=== PATIENT | female | born 1955 | race Caucasian/White ===

== ENCOUNTER 2018-11-25 14:08 | Inpatient (IN) | payer BC ==
[~2018-11-25] VITALS: Ht 147.3 cm; Wt 43.5 kg
--- NOTE | ~2018-11-25 | HC ---
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 She had a standing level fall off the front steps, had increased pain and inability to ambulate. She was evaluated and has been diagnosed with a left sacral fracture and left superior and inferior pubic rami fracture. She is allowed weightbearing as tolerated. She does have a left upper lobe nodule, new finding. Right lower lobe possible pneumonia. She is a current smoker, one-half pack per day and has a history of COPD. Neurology has seen her and noted some left-sided weakness with left homonymous hemianopsia uncertain what is old versus what is new. MRI of the brain was undertaken. She had a chronic 1.5 cm lacunar infarct right basal ganglia, cycle of a prior hemorrhagic transformation of the previous infarct, no acute intracranial infarct was noted. We are seeing the patient in rehabilitation medicine consultation. PAST MEDICAL HISTORY: Includes a right hemorrhagic CVA last year with the left-sided weakness as noted above. She also has left-sided numbness. Apparently, this was due to untreated hypertension. She did have significant recovery. She has had a prior right hip fracture with repair, history of chronic obstructive pulmonary disease, history of untreated hyperlipidemia, depression, or insomnia. She has had carpal tunnel surgery. MEDICATIONS: Please see the full medication listing. SOCIAL HISTORY: Lives with her and son, house, one step. works and son is supportive and involved. There is a sister that lives close by and is involved. Sister apparently helped with sit, pivot, tub transfers premorbidly. The patient did utilize a walker premorbidly. REVIEW OF SYSTEMS: Lower extremity pain is starting to improve. She did have a prior history of chronic back problems and has followed with Dr. Beavers in pain management. No current chest pain, shortness of breath, or abdominal discomfort. She has the chronic tobacco abuse history. No swallowing issues, bowel or bladder changes, no visual changes; although, she has some left-sided visual problems from the stroke. No new facial changes. She does have the decreased sensation, left side, which is from the prior stroke. PHYSICAL EXAMINATION: [facility] [address] [place] [address] CONSULTATION Name: MIKKI LAKHANI Room #: 431-P [facility] IN M.R.#: [id number] Admission: 11/25/18 ������������������ Attend Phys: Angel Alvarez MD Discharge: ������������������ Date of : 55 Report #: [id number] GENERAL: A 63-year-old white female, slender build, no obvious distress. VITAL SIGNS: Temperature 97.6, pulse 58, respirations 18, blood pressure 106/65. She is alert. HEENT: Appeared to be benign. NEUROLOGIC: Cranial nerves are grossly intact. She does have some decreased sensation, left visual field to confrontation, although it is a relatively mild. She does have a resting tremor of that right upper extremity, some mild left-sided weakness, left upper extremity, probably a grade 4-/5. She has some decreased coordination as noted. Lower extremities, some discomfort with attempted testing of volitional strength. She is probably at least grade 4-/5. DTRs are trace to 1. She does have decreased sensation to simultaneous stimulation, left upper and left lower extremity. Functionally, she is mod assist with sit to stand, took 5-6 steps. Lower extremity dressing is min assist. ASSESSMENT: A 63-year-old white female with the following problem list: 1. Left sacral fracture with left superior and inferior pubic rami fracture, allowed weightbearing as tolerated. 2. Left hemiparesis with left hemisensory deficit. 3. Prior hemorrhagic right brain cerebrovascular accident. 4. Question of right lower lobe pneumonia. 5. Question of left upper lobe tumor. 6. Prior right hip fracture with intramedullary nailing. 7. Some evidence of left homonymous hemianopsia. 8. Tobacco abuse. 9. History of chronic obstructive pulmonary disease. PLAN: The patient is a candidate for an acute in-hospital inpatient rehabilitation stay. She is very motivated to further improve her overall functional independence and I definitely feel that she has the tolerance for an acute in-hospital inpatient rehabilitation stay. She does have support at home and has definite goals of getting back into the home setting. We would recommend a short acute in-hospital inpatient rehabilitation stay. Insurance issues to be checked on. ��������������������������������������������� ���������������������������������������� By: ��������������������������������������������� 1100 0052 Poli Stanley MD /nt
--- NOTE | ~2018-11-25 | HC ---
[facility] [place] [address] CONSULTATION Name: MIKKI LAKHANI Room #: 431-P ADM IN ..#: [id number] Admission: 11/25/18 ������������������ Attend Phys: Angel Alvarez MD Discharge: ������������������ Date of : 55 Report #: [id number] THIS REPORT FOR: //name// CC: Angel Alvarez DATE OF SERVICE: 11/26/2018 HISTORY OF PRESENT ILLNESS: This is a 63-year-old female patient who was admitted after a fall and with some hip pain about 9 days ago, that appeared to be a mechanical fall without any loss of consciousness. She has pain there. She has weakness on the left side. She has been taking tramadol for the pain. She indicates that her weakness on the left side is worse than her baseline. REVIEW OF SYSTEMS: Pretty extensive and somewhat not clear. She indicated that she had a hemorrhage on the right side of the brain causing her the left side weakness. She went to [facility] and saw a neurosurgeon there. I have no record of that with me. She said she saw neurosurgeon multiple times. I asked her why she had a hemorrhage, she indicated that it happened because her blood pressure spiked. One of the records has mentioned cardiac disease and atrial fibrillation, but I do not know whether this patient was on anticoagulation at that time. She is on Keppra. She is supposed to be on 500 b.i.d. of Keppra, but she has not been taking that for a long time and in fact is taking Keppra only once a day. She has been to multiple physicians. She indicated that she went to a pain management doctor in [place] and some EMG was done. Now, she follows up with Dr. Beavers for the pain management. In between, she saw Dr. Yee, a neurosurgeon because of C-spine problems, but he did not think any surgery can be done because she says "because the problem is too severe." REVIEW OF SYSTEMS: A 14-point review of system was carried out and this was a relevant 14-point review of system. So far, no etiology for the patient has been found. PAST MEDICAL HISTORY: Positive for hemorrhagic stroke. I do not know the circumstances for which it occurred. It is clear that she did not have a seizure and Keppra was started as a prophylaxis for seizure. FAMILY HISTORY: Unremarkable. SOCIAL HISTORY: She drinks alcohol occasionally. PHYSICAL EXAMINATION: She is alert and responsive. She can follow simple commands. Cranial nerve examinations indicate what appeared to be pretty significant left hemianopsia. She does have slight facial weakness. She appeared to be weak in both lower extremities, I do not know how much is old and how much is new. She said the sensation is altered in both lower extremities [facility] [address] [facility] [place] [address] CONSULTATION Name: MIKKI LAKHANI Heidi Room #: 431-P [facility] IN M.R.#: [id number] Admission: 11/25/18 ������������������ Attend Phys: Angel Alvarez MD Discharge: ������������������ Date of : 55 Report #: [id number] since the stroke. Cardiac examination appears unremarkable. Blood pressure is 111/76, respirations 16, pulse is 84, temperature is 98.1. LABORATORY DATA: White count is 6.2. No respiratory difficulty was noticed. Sodium is 139, it was 133. IMPRESSION: Pretty complicated history in this patient and multiple things need to be addressed. 1. I need the record from [facility] to see why she has any intracerebral bleed and if she was on any anticoagulation at that time. If it was a hypertensive bleed, then I do not believe we need further workup, but otherwise, workup need to be considered. 2. She never had a seizure. She was put on anticonvulsant. The use of anticonvulsant is controversial in a patient who had a bleed, but never had a clinical seizure. Even the physician who put this patient on anti-seizure medication typically take them off after 6 months to 1 year if they do not have any seizure. I discussed that aspect with the patient. I discussed with her that there is no guarantee that she will not have a seizure after the Keppra is tapered off. She needs to decide. We will get an EEG done and we will see how much Keppra level is there. If it is subtherapeutic, for which there is a good possibility, then we may make a stronger case to taper off anticonvulsant. 3. She should avoid any epileptiform medication and she should not take tramadol. 4. She needs a workup for her lung mass. If it is a tumor, then she will need extensive workup including perineoplastic workup. 5. She had trouble with spine in the past. I discussed that aspect with her. I recommended that she has an MRI of the C-spine at the same time she has an MRI of the brain. She said she does not handle MRIs well. She would like to have an MRI of brain only for the time being and if she tolerates that, then we might do the MRI of the spine later on. Thank you very much for this referral and if you have any questions, please feel free to contact me. ��������������������������������������������� ���������������������������������������� By: ��������������������������������������������� 0949 0252 Alec Chan MD /nt
--- NOTE | ~2018-11-25 | H ---
[facility] [place] [address] HISTORY AND PHYSICAL Name: MIKKI LAKHANI Room #: 431-P ADM IN M.R.#: [id number] Admission: 11/25/18 ������������������ Attend Phys: Angel Alvarez MD Discharge: ������������������ Date of : 55 Report #: [id number] THIS REPORT FOR: //name// CC: Angel Alvarez CHIEF COMPLAINT: Progressive left leg weakness and a persistent severe right hip pain after a fall. HISTORY OF PRESENT ILLNESS: Approximately days 9 ago, the patient was standing at her front steps and lost her balance and fell landing on her right hip. She was able to get up and walk back inside to her couch with assistance of family members. She also injured her left side, primarily the left knee during the fall. She did not hit her head. As the day progressed, she developed severe pain in her right hip, and has been unable to walk on it. As time has progressed since her fall, she has had progressively more pain in her right hip, not been able to walk, and also had more weakness and pain in her left knee and her left leg and her left hand. For these reasons, being unable to walk, she was brought by the ambulance to the hospital for further evaluation. Initial evaluation of her right hip showed normal x-rays of her prosthesis. Her sodium is mildly low at 133. Her urinalysis was abnormal, suggesting a urinary tract infection. A CT of the chest showed possible right lower lobe pneumonia and left upper lobe mass with suspicious features for lung cancer, and a significant left subclavian artery plaque. No suggestion as to the cause of her severe right hip pain, or progressive left arm and left leg weakness (other than these abnormalities) that was found. She requires admission for evaluation of these other features. PAST MEDICAL HISTORY: Significant for hemorrhagic right hemisphere stroke last year that left her with left leg weakness, left leg numbness and some pain and numbness in the left arm as well. She has recovered a significant amount of function since that time. She reports that since her fall last week, her left side has become weaker progressively. Stroke due to untreated HTN. No seizure after the stroke, immediately started on prophylactic Keppra. She has had right hip repair of a previous right hip fracture, and films from 03/19/2014 are available and no acute abnormality has occurred. On the same films, moderate myositis ossificans appears on the left hip muscles above the lesser trochanter. She has hypertension, untreated hyperlipidemia, COPD, not requiring treatment, she continues to smoke a half a pack a day. Depression, insomnia. She reports carpal tunnel surgery. SOCIAL HISTORY: She lives at home with her . She gets a significant amount of support from her sister who stops by almost daily . She does not [address] [address] HISTORY AND PHYSICAL Name: MIKKI LAKHANI Heidi Room #: 431-P [facility] IN ..#: [id number] Admission: 11/25/18 ������������������ Attend Phys: Angel Alvarez MD Discharge: ������������������ Date of : 55 Report #: [id number] drink significant alcohol. She insists she only smokes a half a pack of cigarettes a day. Prior to her fall, she was able to get around independently at home with a walker. She retired last year, and then in doing so, lost her health insurance. Her hypertension was untreated at the time she had a hemorrhagic stroke. Since that time, she qualified for insurance. REVIEW OF SYSTEMS: Her left arm hurts more than usual, and has some weakness in the hand. She reports that her left hip muscles are weaker, and specifically is able to identify that her lower leg muscles are functional. She denies shortness of breath or cough or stomach problems. Her right hip is very tender to movement and palpation over the greater trochanter area. The Keppra 500mg gives her some nausea, so she takes it with food and cut back from twice to once a day. Medications (taken from the prescription bottles she brought from home): Keppra 500mg once a day, amlodipine 5mg q am, meloxicam 15 mg qd, mirtazapine 30mg hs, trazodone 50mg 1 or 2 hs, zyrtec 10mg twice a day. tramadol 50mg (not effective for her current pain, so stopped it), fish oil 1400mg (100-mg omega 3) two daily. PHYSICAL EXAMINATION: GENERAL: Shows a 63-year-old female who is uncomfortable. She is awake and alert and oriented. HEENT: Unremarkable. LUNGS: Clear. CARDIOVASCULAR: The heart tones are normal. ABDOMEN: Soft and nontender. EXTREMITIES: There is what appears to be a deep hematoma along the lateral border of the right hip that is exquisitely tender and perhaps 4 cm x 10 cm in size. Formal range of motion of the right hip was not performed. There is weakness of the flexor muscles of the left hip, grossly the left lower leg muscles are normal. Other formal muscle strength testing was not performed. There is no edema in the ankles. IMPORTANT LABORATORY DATA: The left hip plain film is negative for acute fracture. Left lesser trochanter myositis ossificans is noted. CTA of the chest shows possible right lower lobe pneumonia as well as a possible left upper lobe carcinoma with a stellate peripheral pattern that is worrisome. A CTA of the neck shows significant left subclavian stenosis. [facility] [address] [place] [address] HISTORY AND PHYSICAL Name: MIKKI LAKHANI Room #: 431-P [facility] IN ..#: [id number] Admission: 11/25/18 ������������������ Attend Phys: Angel Alvarez MD Discharge: ������������������ Date of : 55 Report #: [id number] Urinalysis is abnormal. ASSESSMENT: 1. She fell 9 days ago from a simple loss of balance and since then has had progressive pain and weakness. 2. Significant right hip pain-that may be from a deep contusion. 3. Progressive weakness on the left side with left hip muscle weakness, more so than residual from her hemorrhagic stroke of last year. 4. Abnormal CT scan of the chest suggesting a left upper lobe possible tumor. 5. CT scan of the chest suggesting right lower lobe pneumonia. 6. Chronic obstructive pulmonary disease. 7. Current smoker. 8. Abnormal urinalysis with no symptoms of a urinary tract infection. 9. Possible left subclavian stenosis. 10. Hypertension. PLAN: 1. Orthopedic consultation regarding the reasons for her severe right hip pain and treatment for it. 2. Neurology consultation regarding the progressive weakness in her left side, and an MRI scan to rule out new stroke. 3. Pulmonary medicine consultation to evaluate the left upper lung nodule and possible right pneumonia. 4. Physical therapy and occupational therapy evaluations. Given that on her own she reduced her Keppra from 500 mg twice daily to 500 mg once daily, and that at the 500 mg dose causes nausea, we will ask Neurology to address adjustment of her medication for perhaps a better coverage throughout the day at a lower dose, that does not cause her upset stomach. ��������������������������������������������� ���������������������������������������� By: ��������������������������������������������� 0849 0913 Angel Alvarez MD /nt
--- NOTE | ~2018-11-25 | EEG ---
[facility] [place] [address] ELECTROENCEPHALOGRAM Name: MIKKI LAKHANI Room #: 431-P [facility] IN M.R.#: [id number] ������������������ Admission: 11/25/18 ������������������ Attend Phys: Angel Alvarez MD Discharge: ������������������ Date of : 55 Report #: [id number] ����������������������������������������������������������������� [id number] THIS REPORT FOR: //name// CC: Angel Alvarez DATE OF SERVICE: 11/26/2018 INDICATIONS: This patient is being evaluated for the possibility of seizure. The patient is on anticonvulsant because of hemorrhagic CVA. She is complaining of multiple nonspecific symptoms. TECHNIQUE: EEG was done by placing the electrodes by standard 10-20 system of electrode placement. Both referential and sequential montages were used for recording. Background activity in this patient's EEG is about 11 Hz and 40 microvolt. It is a symmetrical activity. The patient went to sleep and that is associated with bilateral slowing and vertex sharp waves. Photic stimulation was unremarkable. Throughout the record, no active epileptiform activity was noticed. IMPRESSION: This patient's EEG is within normal limits. Thank you very much for this referral. ���������������������������������������� ���������������������������������������� By: ��������������������������������������������� 0823 1056 Alec Chan MD /nt
[~2018-11-25 14:08] MED LIST: CENTRUM SILVER1 EAC4 PO; COLACE100 MG PO; IBUPROFEN 200200 M1 PO; MIRALAX17 GM PO; OXYCODONE HCL 55 MG PO; OXYCONTIN10 M1 PO; SENNA PO
[2018-11-25 14:09] VITALS: BP 133/78
[2018-11-25] MEDS ORDERED: AMLODIPINE BESY10 MG PO (14:13)
[2018-11-25 15:21] LABS: ABSOLUTE NEUTROPHILS 5.9 thou/uL (1.4-8.2); EOSINOPHILS 0.1 % (0.0-3.0); HEMATOCRIT 40.9 % (37.0-47.0); LYMPHOCYTES 15.8 % (24.0-44.0); MCH 33.3 pg (26.0-34.0); MCHC 34.2 g/dL (28.0-37.0); MCV 97.4 fL (80.0-100.0); PLATELET COUNT 339 thou/uL (150-400); POLYS 76.1 % (36.0-66.0); WBC 7.7 thou/uL (4.0-11.0)
[2018-11-25 15:29] LABS: ANION GAP 8 mmol/L (7-16); BUN 12 mg/dL (7-18); CALCIUM 9.3 mg/dL (8.5-10.1); CHLORIDE 97 mmol/L (98-107); CO2 28 mmol/L (21-32); CREATININE 0.6 mg/dL (0.6-1.0); GLUCOSE 109 mg/dL (74-106); POTASSIUM 4.1 mmol/L (3.5-5.1); SODIUM 133 mmol/L (136-145)
[2018-11-25 15:38] LABS: TROPONIN-I <0.06 ng/mL (<0.06)
[2018-11-25 16:13] LABS: URINE BILIRUBIN NEGATIVE (Negative); URINE BLOOD NEGATIVE (Negative); URINE CLARITY CLEAR; URINE COLOR YELLOW; URINE GLUCOSE-RANDOM* NEGATIVE (Negative); URINE KETONES TRACE (Negative); URINE LEUKOCYTES-REFLEX NEGATIVE (Negative); URINE PROTEIN (DIPSTICK) NEGATIVE (Negative); URINE SPECIFIC GRAVITY 1.015 (1.005-1.035)
[2018-11-25 16:20] LABS: URINE NITRITE-REFLEX POSITIVE (Negative)
[2018-11-25 16:34] LABS: BACTERIA-REFLEX >30 Many /HPF (None Seen); CASTS None Seen /LPF (None Seen); CRYSTALS None Seen /LPF (None Seen); SQUAMOUS 0-3 Few /LPF (0-3); URINE RBC None Seen /HPF (0-2); URINE WBC-REFLEX 0-5 Rare /HPF (0-5)
[2018-11-25 17:44] LABS: BE(vivo) 0 mmol/L (-2 to +3); HCO3 23.7 mmol/L (22.0-26.0); PCO2 35.6 mmHg (35.0-45.0); PO2 64.1 mmHg (80.0-100.0); pH 7.442 (7.360-7.450); sO2 93.4 % (92.0-98.0)
[2018-11-26 09:24] LABS: HEMATOCRIT 41.9 % (37.0-47.0); MCH 32.9 pg (26.0-34.0); MCHC 33.4 g/dL (28.0-37.0); MCV 98.4 fL (80.0-100.0); RBC 4.26 mil/uL (4.20-5.00); RDW 14.2 % (10.5-14.5); WBC 6.2 thou/uL (4.0-11.0)
[2018-11-26 09:40] LABS: ALBUMIN 3.7 g/dL (3.4-5.0); CALCIUM 9.1 mg/dL (8.5-10.1); CREATININE 0.6 mg/dL (0.6-1.0); POTASSIUM 3.6 mmol/L (3.5-5.1); TOTAL BILIRUBIN 0.6 mg/dL (<0.1-1.0); TOTAL PROTEIN 6.6 g/dL (6.4-8.2)
[2018-11-26 20:15] VITALS: BP 92/59
[2018-11-26 21:00] VITALS: BP 116/78
[2018-11-26] MEDS ORDERED: KEPPRA 500 MG500 M1 PO (22:15)
[2018-11-26] MEDS ORDERED: NORVASC5 MG PO (22:16)
[2018-11-26] MEDS ORDERED: TRAMADOL 50 MG50 MG PO (22:17)
[2018-11-26] MEDS ORDERED: MOBIC15 MG PO (22:17)
[2018-11-26] MEDS ORDERED: TRAZODONE HCL50 MG PO (22:19)
[2018-11-26] MEDS ORDERED: REMERON15 MG PO (22:19)
[2018-11-26] MEDS ORDERED: FISH OIL 1,001000 M2 PO (22:21)
[2018-11-26] MEDS ORDERED: ZYRTEC10 M4 PO (22:22)
--- NOTE | 2018-11-27 04:35 | NUR ---
PT ARRIVED ON UINIT FROM ED. ADMISSION COMPLETED. ASSESSMENT COMPLETE. VSS. IV DRESSING C/D/I. BARRIER CREAM APPLIED TO BOTTOM. ENCOURAGED PT TO REPOSITION FREQUENTLY. REPORTS PAIN, SEE EMAR. DORIS N/V. CALL LIGHT WITHIN REACH. WILL CONTINUE POC UNTIL EOS.
[2018-11-27 05:15] VITALS: BP 109/66
--- NOTE | 2018-11-27 07:43 | EKG ---
[place] [address] [facility] [place] [address] ELECTROCARDIOGRAM REPORT Name: MIKKI LAKHANI Room #: 431-P ADM IN M.R.#: [id number] ������������������ Admission: 11/25/18 ������������������ Attend Phys: Angel Alvarez MD Discharge: ������������������ Date of : 55 Report #: [id number] ����������������������������������������������������������������� [id number] THIS REPORT FOR: //name// [facility] ED Test Date: 2018-11-25 Test Time: 14:52:46 Pat Name: MIKKI LAKHANI Department: Room: [facility] Gender: F [employer] Department Manager: Shwetha : 1955 Requested By: Johnathan Jeffrey Order Number: [id number] MD: Go Puga Measurements Intervals [place] Rate: 103 P: 48 IL: 144 QRS: -55 QRSD: 81 T: 44 QT: 329 QTc: 431 Interpretive Statements Sinus tachycardia LAD RSR' in V1 or V2, right VCD Compared to ECG 01/25/2016 17:25:59 No significant change was found Electronically Signed On 11-27-2018 7:42:53 CDT by Go Puga [email or web address] ��������������������������������������������� <ELECTRONICALLY SIGNED> ���������������������������������������� By: Go Puga MD, [facility] ��������������������������������������������� 11/27/18 0742 1452 145 Go Puga MD, [facility] /EPI
[2018-11-27 08:10] VITALS: BP 106/65
--- NOTE | 2018-11-27 11:54 | NUR ---
Assess due to high nutrition screening risk. Admit with increased weakness and hip pain, suspect hematoma. Hx old cva, copd, + tob use. Pulmonary consult noted for new lobe mass. Pt reports appetite "okay" and wt has been stable around 96 lb for several months, although 113 lb before old cva. Likes to drink Ensure supplements-would like twice daily. Reviewed menu ordering process. No other nutrition interventions at this time. Low nutrition risk
[2018-11-27 17:12] VITALS: BP 91/67
--- NOTE | 2018-11-27 17:39 | NUR ---
PT ADMITTED RELATED TO INCREASED WEAKNESS AND HIP PAIN. CM MET WITH PT SHE LIVES IN A HOUSE WITH HER SPOUSE AND 2 SONS. PT INDICATED SHE HAS 1 STEP TO ENTER AND NO SHE USES INSIDE. PT INDICATED SHE HAD A FWW AND A WC. PT INDICATED NO HH HX BUT THAT [facility] HAD BEEN TO [facility] HER STROKE. PT INDICATED SHE IS RECEPTIVE TO GOING TO [facility] IF HER INSURANCE WILL AUTH. [facility] SUBMITTED FOR AUTH. CM FOLLOWING INDICATED WITH DC PLANNING.
[2018-11-27 18:33] LABS: APTT 27.2 Seconds (24.5-32.8); PROTIME 10.5 Seconds (9.3-11.4)
[2018-11-27 19:36] VITALS: BP 96/61
[2018-11-28 04:04] VITALS: BP 125/79
--- NOTE | 2018-11-28 05:02 | NUR ---
ASSUMED CARE OF PT @1900 PT ASSESSED AT START OF SHIFT A&OX4 THIS SHIFT. WITH C/O PAIN IN LEFT HIP AND BUTTOCKS PAIN MEDS GIVEN FOR MANAGEMENT SEE EMAR. POC DONE AND EVENING MEDS GIVEN. WILL CONTINUE TO MONITOR TILL EOS
[2018-11-28 07:01] VITALS: BP 124/78
--- NOTE | 2018-11-28 11:34 | NUR ---
PT A&OX4. IV INTACT IN L FA. C/O PAIN TO L SIDE HIP AND PELVIC AREA. L SIDE WEAKNESS NOTED. PT IN WITH PATIENT THIS AM. PLANS ARE FOR PT TO GO TO REHAB TODAY. CALL LIGHT W/I REACH, CHAIR/ BED ALARM ON.
[2018-11-28] MEDS ORDERED: HYDROCODON-ACE1 EAC7 PO (15:24)
[2018-11-28] MEDS ORDERED: ENOXAPARIN30 MG/0.1 SUBQ (15:24)
[2018-11-28] MEDS ORDERED: HOME MEDICATION PO (15:24)
[2018-11-28] MEDS ORDERED: KEPPRA750 MG PO (15:24)
--- NOTE | 2018-11-29 08:25 | NUR ---
PT TO TRANSFER TO [facility]N FOR ADDITIONAL REHAB.
--- NOTE | 2018-11-29 19:08 | HC ---
[facility] [address] [address] CONSULTATION Name: MIKKI LAKHANI Room #: 431-P [facility] IN ..#: [id number] Admission: 11/25/18 ������������������ Attend Phys: Angel Alvarez MD Discharge: 11/28/18 ������������������ Date of : 55 Report #: [id number] THIS REPORT FOR: //name// CC: Angel Alvarez MD REFERRAL PHYSICIAN: Angel Alvarez M.D. REASON FOR REFERRAL: Lung nodule. HISTORY OF PRESENT ILLNESS: The patient is a 63-year-old white female who was admitted following a fall. CT imaging of the chest revealed lung nodule. A pulmonary consultation was requested. The patient has smoked most of her life. She is trying to cut back. She is down to less than half a pack a day. She has been diagnosed with COPD in the past. Last year she had a right hemorrhagic stroke resulting in left-sided weakness. With therapy she improved somewhat, though there was residual weakness. She gets around with a walker. Yesterday, she felt unsteady and fell onto her right side. She is now with severe right hip pain with contusion. Otherwise, denies any recent febrile illness, night sweats or chills, cough, hemoptysis. She denies any recent weight loss. She is retired, she has worked in nursing. Denies any exposure to occupational toxins or dust. PAST MEDICAL HISTORY: As mentioned above, tobacco abuse, COPD, past history of right hip fracture in 2013, hypertension, hyperlipidemia, depression, insomnia, long history of rheumatoid arthritis. PAST SURGICAL HISTORY: Carpal tunnel surgery. ALLERGIES: ERYTHROMYCIN WHICH CAUSES RASH, SULFA CAUSES HIVES, SURGICAL STEEL RESULTS IN BODY REJECTION. HOME MEDICATIONS: Include Keppra 500 mg p.o. b.i.d., Norvasc 5 mg once a day, Ultram 50 mg p.o. b.i.d. p.r.n., Mobic 15 mg p.o. every day, Desyrel 50 mg p.o. at bedtime p.r.n., Remeron 15 mg p.o. at bedtime p.r.n., Zyrtec 10 mg once a day, multivitamins once a day. FAMILY HISTORY: Notable for COPD in the mother. SOCIAL HISTORY: , lives with her . Tobacco history as mentioned [facility] [address] [place] [address] CONSULTATION Name: MIKKI LAKHANI Room #: 431-P [facility].#: [id number] Admission: 11/25/18 ������������������ Attend Phys: Angel Alvarez MD Discharge: 11/28/18 ������������������ Date of : 55 Report #: [id number] above. She drinks occasional alcohol. She is retired and was a nurse. REVIEW OF SYSTEMS: As mentioned above is notable for left-sided weakness with past history of falls. Otherwise, 10-point system review negative. PHYSICAL EXAMINATION: GENERAL: She is awake, alert, in no distress. VITAL SIGNS: Temperature is 98.4 degrees Fahrenheit, respiratory rate is 18, pulse is 94, saturation 100%. HEENT: Normocephalic, atraumatic. NECK: Supple, without any lymphadenopathy or thyromegaly. CHEST: Breath sounds are good bilaterally without any rales or wheezes. CARDIOVASCULAR: Normal S1, S2. No murmurs or gallop. There is no JVD. There is no carotid bruit. Pulses are 2+/4+ bilaterally. ABDOMEN: Soft, nontender. GENITOURINARY: Deferred. RECTAL: Deferred. EXTREMITIES: There is no edema, cyanosis or clubbing. NEUROLOGIC: As mentioned above, some weakness in the left upper and lower extremities. LABORATORY DATA: CT chest angiogram showed no evidence of pulmonary embolus. There is a spiculated ill-defined left upper lobe nodule, mild right lower lobe infiltrates. The left upper lobe nodule measures 10 x 12 mm in diameter. There is a surrounding ground-glass opacity measuring 16 x 23 x 32 mm in diameter. Mediastinum is otherwise normal. Right hip x-ray shows no new fractures. There is a prior right hip ORIF, left hip intact. CT head was grossly unremarkable for any acute abnormalities. Leg Doppler ultrasound of the left lower extremity was negative for DVT. CT angiogram of the head and neck shows a large calcified plaque at the left subclavian artery origin. MRI of the head shows chronic lacunar infarct measuring 1.5 cm diameter within the posterior aspect of the right basal ganglia. Otherwise, no significant findings. CT abdomen and pelvis grossly unremarkable. Electrolytes are normal. Liver enzymes are grossly unremarkable. WBC is 7700, hemoglobin is normal. No evidence of bandemia. Arterial blood gas revealed pH 7.44, pCO2 of 35, pO2 of 64 on room air. IMPRESSION: 1. Spiculated left upper lobe nodule in this 63-year-old white female. She has a long history of tobacco use. She has a history of rheumatoid arthritis. Etiology is unclear, but need to rule out malignancy. Granulomatous process is possible given history of rheumatoid arthritis. Pneumonia is felt to be less likely. 2. Mild right lower lobe infiltrates. Clinically, she does not appear to be septic, suggestive of pneumonia. 3. Chronic obstructive pulmonary disease, tobacco abuse. Severity undefined. 4. Ataxia, recent fall with right-sided hip pain and contusion. [address] [place] [address] CONSULTATION Name: MIKKI LAKHANI Room #: 431-[facility] IN ..#: [id number] Admission: 11/25/18 ������������������ Attend Phys: Angel Alvarez MD Discharge: 11/28/18 ������������������ Date of : 55 Report #: [id number] 5. Past history of cerebrovascular accident, left-sided weakness. 6. An apparent large plaque involving the left subclavian artery origin. The patient may benefit from Vascular Surgery evaluation. 7. Essential hypertension. RECOMMENDATION: In regards to the workup of lung nodule, I would recommend outpatient followup with a PET scan. Then we will proceed with further studies such as bronchoscopy. She will need a baseline pulmonary functions which also can be done as an outpatient. In terms of possible pneumonia, I would defer antibiotics, observe. Clinically, she does not appear to be septic to suggest pneumonia at this time. Agree with ongoing workup regarding ataxia, weakness and orthopedic evaluation regarding the right hip pain. I discussed in detail with the patient and her daughter. She voices understanding to follow up in the office. Additional recommendation, also discussed importance of tobacco cessation. The patient voices understanding. Thank you for this consultation. ��������������������������������������������� <ELECTRONICALLY SIGNED> ���������������������������������������� By: Domenic Shaw MD ��������������������������������������������� 11/29/18 [id number] Domenic Shaw MD /nt
== END 2018-11-28 17:51 | DRG 535 ==
LOC: ER 14:08 → EROBS 21:37 → 4E 21:37 → EROBS 11-26 08:30 → 4E 11-26 20:19
PROVIDERS: Emergency Medicine; ADMIT Internal Medicine
DX: S32.592A Other specified fracture of left pubis, initial encounter for closed fracture (principal); J96.01 Acute respiratory failure with hypoxia; J18.9 Pneumonia, unspecified organism; I69.354 Hemiplegia and hemiparesis following cerebral infarction affecting left non-dominant side; N39.0 Urinary tract infection, site not specified; F17.210 Nicotine dependence, cigarettes, uncomplicated; W18.39XA Other fall on same level, initial encounter; J44.9 Chronic obstructive pulmonary disease, unspecified; S70.01XA Contusion of right hip, initial encounter; R91.1 Solitary pulmonary nodule; E78.5 Hyperlipidemia, unspecified; F32.9 Major depressive disorder, single episode, unspecified; R62.7 Adult failure to thrive; I10 Essential (primary) hypertension; M06.9 Rheumatoid arthritis, unspecified; I48.91 Unspecified atrial fibrillation; Z88.1 Allergy status to other antibiotic agents; Z88.2 Allergy status to sulfonamides; Z91.048 Other nonmedicinal substance allergy status; Y93.89 Activity, other specified; Y92.89 Other specified places as the place of occurrence of the external cause; Y99.8 Other external cause status; Z68.20 Body mass index [BMI] 20.0-20.9, adult
CPT/HCPCS: 10084

== ENCOUNTER 2018-11-28 13:14 | Inpatient (IN) | payer BC ==
[~2018-11-28] VITALS: Ht 147.3 cm; Wt 52.6 kg
--- NOTE | ~2018-11-28 | PLAN ---
[facility] [address] [place] [address] REHAB UNIT PLAN OF CARE Name: MIKKI LAKHANI Room #: 515-P ADM IN .R.#: [id number] Admission: 11/28/18 Attend Phys: Poli Stanley MD Discharge: Date of : 55 Report #: [id number] THIS REPORT FOR: //name// CC: Poli Alvarez DATE OF SERVICE: 11/30/2018 PROGRESS NOTE/OVERALL PLAN OF CARE SUBJECTIVE: The patient is seen back today in followup. She is in no distress. Last recorded temperature 98.3, pulse 80, respirations 22, blood pressure 132/75. Her pelvic pain is gradually improving. She has been working in therapies with transfers, mod assist. Gait min assist 51 feet front-wheeled walker. Lower body dressing is mod assist. ASSESSMENT: 1. Left sacral fracture with left superior and inferior pubic rami fracture, weightbearing as tolerated. 2. Left hemiparesis with left hemisensory deficit. 3. Prior hemorrhagic right brain cerebrovascular accident. 4. Question of right lower lobe pneumonia. 5. Question of left upper lobe tumor. 6. Prior right hip fracture with intramedullary nailing. 7. Some evidence of a homonymous hemianopsia. 8. Tobacco abuse. 9. History of chronic obstructive pulmonary disease. PLAN: The overall plan of care is based on the preadmission screen, post-admission physician evaluation and information garnered from therapy assessments. 1. Estimated length of stay is probably at least a week. We will need to see how she does. 2. Medical prognosis is reasonably good. 3. Anticipated interventions includes the interdisciplinary acute inpatient rehabilitation program. 4. Anticipated functional outcomes would be for the patient to become modified independent with basic transfers, mobility, and ADLs at a walker level. 5. Discharge destination would be for the patient to return back home with her and son. 6. Expected therapy by discipline includes physical therapy and occupational [address] [address] REHAB UNIT PLAN OF CARE Name: MIKKI LAKHANI Room #: 515-P [facility] IN [facility]#: [id number] Admission: 11/28/18 Attend Phys: Poli Stanley MD Discharge: Date of : 55 Report #: [id number] therapy 1 to 1-1/2 hours per day each 5 days a week throughout the duration of the acute inpatient rehabilitation stay. By: 1250 11 Poli Stanley MD /[facility]
[~2018-11-28 13:14] MED LIST changes: +AMLODIPINE BESY10 MG PO; +FISH OIL 1,001000 M2 PO; +KEPPRA 500 MG500 M1 PO; +MOBIC15 MG PO; +NORVASC5 MG PO; +REMERON15 MG PO; +TRAMADOL 50 MG50 MG PO; +TRAZODONE HCL50 MG PO; +ZYRTEC10 M4 PO
[2018-11-28] MEDS ORDERED: KEPPRA750 MG PO (15:24)
[2018-11-28] MEDS ORDERED: ENOXAPARIN30 MG/0.1 SUBQ (15:24)
[2018-11-28] MEDS ORDERED: HOME MEDICATION PO (15:24)
[2018-11-28] MEDS ORDERED: HYDROCODON-ACE1 EAC7 PO (15:24)
--- NOTE | 2018-11-28 18:20 | NUR ---
ASSUMED CARE AT APPROX 1725. PATIENT A/O X4. C/O MILD HIP PAIN DURING TRANSFERS, COMFORTABLE AT REST. C/O DIARRHEA, MULTIPLE LOOSE STOOLS THIS DATE. DR. MENENDEZ CONTACTED, ORDERS FOR SPECIAL CONTACT ISOLATION AND TO COLLECT STOOL FOR C.DIFF TESTING RECEIVED. PATIENT INFORMED ABOUT TEST AND PRECAUTIONS. UP X1 MAX ASSIST TRANSFER PIVOT TO [facility]. PATIENT'S DAUGHTER AT BEDSIDE, ALSO INFORMED OF PRECAUTIONS. FALL PRECAUTIONS IN PLACE. PATIENT OFFERED DINNER, REFUSED >90% OF MEAL, DRINKING ICED TEA AND EATING ICE CREAM BROUGHT BY VISITORS. CONSULTS CALLED. SPECIAL CONTACT ISOLATION MAINTAINED. STOOL SPECIMEN YET TO BE COLLECTED, WILL CONTINUE TO MONITOR.
--- NOTE | 2018-11-28 18:24 | NUR ---
DC ORDERS RECEIVED TO REHAB. IV REMOVED FROM L AC, WOUND PICS TAKEN FOR CHART AND ALSO FOR REHAB REQUESTED. REPORT GIVEN TO AMMON. PT TRANSPORTED BY ROOM COOLER INSTALLER AND WC.
[2018-11-28 18:45] VITALS: BP 119/83
[2018-11-29 06:10] LABS: HEMATOCRIT 32.4 % (37.0-47.0); MCH 33.4 pg (26.0-34.0); MCV 98.4 fL (80.0-100.0); RBC 3.29 mil/uL (4.20-5.00); RDW 14.2 % (10.5-14.5); WBC 5.1 thou/uL (4.0-11.0)
[2018-11-29 06:17] LABS: CALCIUM 8.3 mg/dL (8.5-10.1); CREATININE 0.5 mg/dL (0.6-1.0); POTASSIUM 3.1 mmol/L (3.5-5.1)
--- NOTE | 2018-11-29 06:30 | NUR ---
TRANSFERRED TO REHAB UNIT @ 17:30, RECEIVED REPORT, ASSUMED CARE @ 19:30. A&OX4 IN BED, TRANSFERS TO BSC TO TOILET. NON WEIGHT BEARING L LOWER EXTENSION. TRANSERS X1 OR X2 ASSIST WITH GAIT BELT. FALL RISK, USES WALKR OR W.C. TO MOBOLIZE. ADMITTING DIAGNOSIS L PELVIC FXS L HEMIPARESIS WITH HEMISENSORY DEFICITE. FALL ON COCCYX 10 DAYS AGO. RATES PAIN @ 6/10, HYDROCODONE 5/325. FOLLOW UP NOTED TO BE SLEEPING. MODERATE TO MAX ASSIST X1. WILL CONTINUE TO MONITOR Q 1 HOUR FOR PATIENT SAFETY.
[2018-11-29 07:20] VITALS: BP 132/75
--- NOTE | 2018-11-29 08:32 | NUR ---
Pt seen per RD screening for documentation of wound. 1 wound (ulcer) noted in EMR, but location/description not identified yet. Do see previous notes about a fall on coccyx. Here w/ L pelvic fracture, L hemiparesis w/ hemisensory deficits. Recently seen by RD on 11/27, prior to rehab transfer. "I just guessed my weight" when reporting 96#. Per 11/28 bed scale, pt weighs 116#. On a regular diet, w/ strawberry Ensure Enlive BID at breakfast/lunch per pt request. Multiple loose stools 11/28 - in isolation to rule out c diff. Pt not having "the greatest appetite" but aside from Ensure, denies further nutrition interventions. Drank 100% of 2 supplements 11/27 - 11/28 for an extra 700kcals, 40 g protein/day. Encouraged prioritizing supplements and bites of protein at meals. Remains low nutrition risk w/ interventions. Follow for supplement consistency/po changes.
--- NOTE | 2018-11-29 09:50 | NUR ---
chart review, cm visited with pt at bedside, she up sitting in recliner chair, pt cont on isolation precaution (c-diff) precaution. pt is a & o x 4, and able to make her needs know. intro to cm, dcp, team meeting, home health and outpt rehab. pt reported " live home with and 2 son. i was good that my son was home to help me, i didn't have any pain till later that is why did not come right in. i was up using by walker afterwords. been to oupt rehab in [place] and was almost able to walk. have 1 step to enter home, have fww, wheel chair, shower bench, and grab bars. manage own medication. still cook and i have not driving in while but i can since still got right side. [facility]. have family support. 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 i have family and friend support if needed"/cliff. will cont following as needed for dc needs.
[2018-11-29 19:50] VITALS: BP 131/68
--- NOTE | 2018-11-29 20:10 | NUR ---
ASSUMED CARE AT APPROX 0715. A/O X4. C/O PAIN IN BILATERAL HIPS, L>R. RATES PAIN 5-6/10, STATES THIS IS HER BASELINE. MEDICATED FOR PAIN PRIOR TO THERAPY. UP X1 ASSIST PIVOT, AMBULATING WITH THERAPY. PARTICIPATED IN ALL SCHEDULED THERAPIES. ISOLATION DISCONTINUED, C.DIFF NEGATIVE. POTASSIUM LOW WITH AM LABS, DR. MENENDEZ NOTIFIED, ORDERS TO TREAT LOW K+ RECIEVED. PATIENT TOILETING PER BSC, NO MORE DIARRHEA THIS SHIFT. FALL PRECAUTIONS IN PLACE. PATIENT ROUNDED ON HOURLY. RESTING IN RECLINER AT END OF SHIFT.
--- NOTE | 2018-11-30 05:15 | NUR ---
Assumed pt care at 1900. A/OX4,C/o pain to simba hips medicated per EMAR with relief reported. Up with min assist/GB to BSC.Voiding without problems voiced. Pt is able to turn herself in bed and declines staff's assistance. Zguard applied to buttocks as needed. Does have a non-productive cough using incentive spirometer WA. VSS. Resting quietly no distress at this time will continue to monitor pt.
[2018-11-30 05:58] LABS: CALCIUM 8.7 mg/dL (8.5-10.1); CREATININE 0.6 mg/dL (0.6-1.0); POTASSIUM 3.7 mmol/L (3.5-5.1)
[2018-11-30 07:30] VITALS: BP 148/87
--- NOTE | 2018-11-30 14:05 | NUR ---
PATIENT CARE WAS ASSUMED AT 0715.PATIENT IS ALERT AND ORIENTED X4.PATIENT IS SITTING UP IN THE CHAIR.PATIENT HAS PAIN 8/10,AND WAS GIVEN PAIN MEDICATION.PT HAS LEFT SIDED WEAKNESS/NUMBNESS.PT IS ABLE TO BE UP WITH X1 ASSIST TO BSC.HAS OPEN AREAS ON BUTTOCKS PATIENT IS REMINDED TO TURN,PATIENT HAS Z GAURD ON BUTTOCKS AND OPEN TO AIR.
[2018-11-30 21:01] VITALS: BP 138/76
--- NOTE | 2018-12-01 03:30 | NUR ---
PT RESTING IN ROOM AT [facility] OF SHIFT. UP TO BS COMMODE WITH ASSIST. TOOK HS MEDS PRESCRIBED WITH HYDROCODONE FOR C/O PAIN. T SIDE WEAKNESS, SECONDARY TO LT HIP REPAIR. SORE ON BUTTOCK TX WITH BARRIER CREAM. A+O X4. ANIMATED AND CORDIAL. SLEPT WELL THROUGH THE NIGHT.
[2018-12-01 08:00] VITALS: BP 127/79
[2018-12-01 19:30] VITALS: BP 119/67
--- NOTE | 2018-12-02 03:05 | NUR ---
assumed care at approx 1900 evening 12/01. pt dangling on side of bed at change of shift. pt alert and oriented x4, appropriate and cooperative. pt assist up to bsc to void. pt took hs meds with water tolerating well. pt appears to be sleeping soundly with hourly rounding checks. bed alarm on and call light in reach. will continue to monitor.
[2018-12-02 07:30] VITALS: BP 122/72
--- NOTE | 2018-12-02 14:57 | HC ---
[facility] [address] [address] CONSULTATION Name: MIKKI LAKHANI Room #: 515-P [facility] IN .R.#: [id number] Admission: 11/28/18 Attend Phys: oPli Stanley MD Discharge: Date of : 55 Report #: [id number] THIS REPORT FOR: //name// CC: Poli Alvarez DATE OF SERVICE: 12/01/2018 NEUROBEHAVIORAL STATUS EXAMINATION ATTENDING PHYSICIAN: Poli Stanley M.D. VICE PRESIDENT OF CUSTOMER SERVICE: Eduardo Hathaway, PhD. CLINICAL PRESENTATION: The patient is a 63-year-old white female admitted to the rehabilitation unit at [facility] for a comprehensive inpatient rehabilitation program to improve functional mobility, activities of daily living and self-care and mental status secondary to a fall at her home. She reported walking to the door to let a visitor into her home when she fell and sustained her injury. Her assessment on admission to the rehab unit is a left sacral fracture with left superior and inferior pubic rami fracture, allowed weightbearing as tolerated, left hemiparesis and left hemisensory deficit from a prior hemorrhagic right CVA, question of right lower lobe pneumonia, question of left upper lobe tumor, prior right hip fracture with intramedullary nailing, evidence of homonymous hemianopsia, tobacco abuse and a history of COPD. A complete description of her medical condition and history can be found in her medical record. Neuropsychological consultation was requested to provide assistance in the assessment of cognitive and emotional status and provide recommendations and services. Prior to this admission, she reports having been living independently in her home. She has 7 children. The patient has 2 sons living with her in their home. One son has paranoid schizophrenia. His behavior is reported as well managed. 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 TECHNIQUES UTILIZED: Clinical interview, review of medical records, staff consultation and behavioral observation, mini mental status exam 2 standard version, clock drawing and verbal fluency assessment (letter and category). EXAMINATION FINDINGS: The patient was alert and cooperative with the assessment. She accurately described events surrounding her admission. There is no evidence of aphasia. Her thoughts are logical and goal oriented. There is no evidence of thought disorder. She does not report auditory or visual hallucinations. She does not indicate subjective feelings of anxiety or depression. She reports having taken an antidepressant since her stroke and has maintained its use. [address] [address] CONSULTATION Name: MIKKI LAKHANI Room #: 515-P [facility] IN .R.#: [id number] Admission: 11/28/18 Attend Phys: Poli Stanley MD Discharge: Date of : 55 Report #: [id number] She does not report difficulty with memory, word finding or concentration. Appetite is reduced. She reports her sleep as consistent with premorbid level which is 4-6 hours a night. Her stroke has left her with some residual left neglect. Performance on the MMSE 2 brief version is within normal limits with a raw score 16 of 16. She was 3/3 for initial registration, 5/5 for orientation to time and place and 3/3 for immediate recall after 3 items after a brief time delay and distraction. Performance on the MMSE 2 standard version is within normal limits with a raw score of 29/30. She was 5/5 for serial sevens, 2/2 for naming, 1/1 for repetition. She was 3/3 for auditory comprehension. She could read and follow single command and write a sentence. She had some difficulty with copying a simple geometric design. Clock drawings within normal limits. Letter fluency was in the borderline range with a raw score of 17 and a T score of 29, which is at the 2nd percentile. Category fluency was in the average range with a T score of 44 and percentile rank of 27. Overall, total fluency was in the borderline range with a T score of 35 and a percentile rank of 7. The patient is presenting as alert and oriented. Mild deficits are suggested in verbal fluency. Deficits is verbal fluency typically indicates a variability in thought organization which may be a residual symptom from her initial stroke. 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 RECOMMENDATIONS: Continued use of compensatory strategies to manage residual symptoms from her stroke. The patient should be discouraged from continued tobacco use. She may benefit from a treatment program that includes the use of relaxation techniques to assist in the management of tobacco dependence. Thank you very much for allowing me to provide the consultation on this patient. <ELECTRONICALLY SIGNED> By: Eduardo Hathaway, PhD 12/02/18 1457 [id number] 0030 Eduardo Hathaway, PhD /nt
--- NOTE | 2018-12-02 17:11 | NUR ---
ASSUMED CARE OF PT AT 1245 THIS SHIFT. PT HAS BEEN COOPERATIVE, HAS HAD PAIN IN HER HIP, MEDICATION WAS GIVEN. PT IS CURRENTLY RESTING COMFORTABLY IN ROOM. EDUCATION WAS PROVIDED. PLAN OF CARE IS TO CONTINUE TO MONITOR PT AT THIS TIME.
[2018-12-02 19:30] VITALS: BP 108/64
--- NOTE | 2018-12-03 02:47 | NUR ---
assumed care at approx 1900 evening 12/02. pt alert and oriented x4, appropriate and cooperative. pt up to bsc to void with minimal assist. pt took hs meds with water tolerating well. pt appears to be sleeping soundly with hourly rounding checks. bed alarm on and call light in reach. will continue to monitor.
[2018-12-03 08:30] VITALS: BP 124/72
--- NOTE | 2018-12-03 11:29 | HC ---
[facility] [place] [address] [place] [address] CONSULTATION Name: MIKKI LAKHANI Room #: 515-P [facility] IN ..#: [id number] Admission: 11/28/18 Attend Phys: Poli Stanley MD Discharge: Date of : 55 Report #: [id number] THIS REPORT FOR: //name// CC: Poli Alvarez DATE OF SERVICE: 11/29/2018 WOUND CARE CONSULTATION PERSONAL PHYSICIAN: Dr. Poli Stanley. CHIEF COMPLAINT: Bilateral gluteal decubitus ulcers. HISTORY OF PRESENT ILLNESS: This is a 63-year-old white female who was admitted to the rehab unit for progressive strengthening after the patient suffered a recent fall and fractured pelvis. The patient states that the decubitus ulcers do have mild pain associated with them, worse when she is sitting, better when she is lying in bed. The patient denies any other associated ulcerations. The patient does have complaints of pain with ambulation and uses a walker at this time. The patient denies any previous ulcerations that she could not heal on her own. PAST MEDICAL HISTORY: Significant for previous CVA with some residual left-sided weakness, history of hypertension, prior right hip fracture with repair, COPD. CURRENT MEDICATIONS: Multiple, I reviewed the patient's medication list. DRUG ALLERGIES: SULFA. SOCIAL HISTORY: The patient smokes half a pack of cigarettes daily, does not drink alcohol. Lives at home with her family. FAMILY HISTORY: Not pertinent to current medical condition. REVIEW OF SYSTEMS: CONSTITUTIONAL: The patient denies fever or chills. NEUROLOGIC: The patient denies any new weakness, but does have residual left-sided weakness from her previous CVA. Denies headache. EYES: No complaints. ENT: No complaints. CARDIAC: The patient denies chest pain, palpitations, peripheral edema. RESPIRATORY: The patient denies shortness breath, cough or wheezes. GASTROINTESTINAL: The patient denies nausea, vomiting, abdominal pain. GENITOURINARY: The patient denies urgency or frequency. [facility] [address] [place] [address] CONSULTATION Name: MIKKI LAKHANI Room #: 515-P [facility] IN [facility]#: [id number] Admission: 11/28/18 Attend Phys: Poli Stanley MD Discharge: Date of : 55 Report #: [id number] MUSCULOSKELETAL: The patient has pain in her pelvic area, where the fracture is located. SKIN: There are bilateral stage 3 superficial decubitus ulcers. PHYSICAL EXAMINATION: VITAL SIGNS: Temperature 36.7, pulse 64, respiratory rate 20, BP 122/72. GENERAL: This is an alert and oriented x 3, pleasant white female who is in mild distress secondary to pain. HEENT: Normocephalic, atraumatic. Mucous membranes are moist. Pupils are round. Sclerae are white. NECK: Supple, nontender. LUNGS: Clear. HEART: Regular. ABDOMEN: Soft, nontender. EXTREMITIES: The patient moves all extremities without difficulty. Bilateral heels are intact. Evaluation of gluteal region reveals superficial stage 3 decubitus ulcers, which are clean and granulating. There are no signs of infection. Periwound is otherwise intact. There are no signs of significant drainage. NEUROLOGIC: Cranial nerves 2-12 grossly intact. Motor and sensory grossly intact except for mild left-sided weakness. LABORATORY VALUES: White count 5.1, hemoglobin 11.0. Albumin is 3.7. IMPRESSION: 1. Bilateral gluteal stage 3 superficial decubitus ulcers present on admission. 2. History of recent pelvic fracture. 3. Generalized debility. 4. History of previous cerebrovascular accident with left-sided weakness. PLAN: At this time, we will start the patient on a barrier cream to both of these areas. The patient is placed on a low air loss mattress and will be turned every 2 hours. The patient will continue PT and OT for rehabilitation and strengthening. We will continue to follow the patient while she is here. We will continue to encourage the patient to eat a protein rich diet for healing. <ELECTRONICALLY SIGNED> By: Camilo Slater MD 12/03/18 1129 1229 2130 Camilo Slater MD /nt
[2018-12-03 19:40] VITALS: BP 118/62
--- NOTE | 2018-12-03 19:43 | NUR ---
ASSUMED CARE AT APPROX 0715. PATIENT A/O X4. C/O LEFT HIP, SACRAL, AND KNEE PAIN. PAIN MEDS ADMINISTERED AVAILABLE. UP X1 ASSIST GB AND WALKER TO TOILET. PO FLUIDS ENCOURAGED. BARRIER CREAM APPLIED TO BUTTOCKS. PATIENT PARTICIPATING IN THERAPY. CALLED APPROPRIATELY FOR ASSISTANCE. FALL PRECAUTIONS IN PLACE. SITTING EOB OR IN RECLINER MOST OF SHIFT, PATIENT SHIFTS WEIGHT SIDE TO SIDE INDEPENDENTLY FOR COMFORT, WAFFLE CUSHION FOR CHAIR PROVIDED.
--- NOTE | 2018-12-04 03:51 | NUR ---
NURSES NOTE - THIS NURSE ASSUMED CARE AT APPROXIMATELY 1900. PT IS CALM AND COOPERATIVE AND PLEASANT DURING INITIAL GREETING. SHE APPEARS WITH A EUTHYMIC AFFECT. SHE REPORTED HER HEALTH HX TO THIS RN, THIS NURSE PERFORMED ASSESSMENT ON PATIENT. SHE REPORTS THAT SHE LIKES TO DO THINGS ON HER OWN, BUT HAS REQUESTED PAIN MEDICATION AT APPROXIMATELY Q4 HOURS TO ALLEVIATE HER BACK/SACRAL AND HIP PAIN, NO SIGN OF FACIAL GRIMACING OR OTHER CLUES TO PATIENT BEING IN PAIN, BUT DOES REPORT A PAIN OF "5" NORMAL FOR HER. SHE IS A ONE ASSIST TO [place]. SHE VOIDED TWICE THAT HAS A DISTINGUISHED FOUL ODOR TO IT. THIS NURSE ENCOURAGED MORE WATER PRODUCTS AND NON CAFFIENATED DRINKS. SHE DOES NOT APPEAR TO BE DISTRESS, VSS, NURSING WILL CONTINUE TO MONITOR.
[2018-12-04 08:06] VITALS: BP 120/72
--- NOTE | 2018-12-04 09:17 | NUR ---
Nutrition: Pt seen for early f/up on rehab, plus received provider consult for stage III pressure ulcers to both L and R buttock. Pt last seen by RD 11/29 and started on twice daily strawberry Ensure Enlive supplements (which if both consumed, adds 700 kcals, 40 g protein/day). Pt has consumed 100% of recorded supplements the last 4 consecutive days. Meal intakes vary from 20-100%, with only 1 meal refusal in the last 5 days. MEAL AVERAGE= 61% per the last 13 recorded meals. At AM visit, pt states completing 50% of meat/entree, plus drinking Ensure for added protein. Reiterated importance of protein intake for her extent of wounds and explained protein equivalences of Ensure vs meat. Pt very short, blunt with RD, not wanting RD to elaborate/educate more. Shares "I've been through all this before with my stroke(s)." Denies more nutrition interventions. Low nutrition risk with interventions and education in place.
--- NOTE | 2018-12-04 11:34 | NUR ---
PATIENT CARE WAS ASSUMED AT 0715.PATIENT IS ALERT AND ORIENTED X4.PATIENT IS SITTING ON THE SIDE OF THE BED.PT IS X1 ASSIST WITH WALKER.PT HAS COMPLAINS OF PAIN 8/10 ON PAIN SCALE.PATIENT WAS GIVEN PAIN MEDICATION.PT TAKES HER MEDICATION WITH WATER WITHOUT ISSUES.PT HAS SOME REDNESS ON BUTTOCKS. CREAM IS PUT IN PLACE NEEDED.PT HAS CALL LIGHT,PHONE, PERSONAL BELONGINGS WITHIN REACH.
--- NOTE | 2018-12-04 12:20 | NUR ---
team meeting recommendation: dc home on with hh ( pt, ot, nursing) then transition to outpt and no driving. no dme needs. already has dme in home.
[2018-12-04 19:40] VITALS: BP 117/62
--- NOTE | 2018-12-05 00:38 | NUR ---
AMBULATES TO THE BATHROOM, GAIT SLOW AND SLIGHT UNSTEADY. VOIDING WITH NO DIFFICCULTY, NORCO FOR PAIN, TOOK TRAZODONE TONIGHT, AERT/ORIENTED X4, PT ABLE TO TURN/REPOSITION SELF, MONITORED.
[2018-12-05 07:45] VITALS: BP 114/71
--- NOTE | 2018-12-05 14:49 | NUR ---
ASSUMED CARE AT APPROX 0715. PATIENT A/O X4. C/O LLE PAIN, MOSTLY IN KNEE AND ANKLE SHE STATED. PAIN MEDS ADMINISTERED AVAILABLE. VSS. PATIENT PARTICIPATING IN THERAPY. UP X1 ASSIST GB AND WALKER, AMBULATING TO TOILET. FALL PRECAUTIONS IN PLACE. CALLS APPROPRIATELY FOR ASSISTANCE. ROUNDED ON HOURLY. WILL CONTINUE TO MONITOR.
[2018-12-05 19:44] VITALS: BP 112/70
--- NOTE | 2018-12-05 23:45 | NUR ---
ASSUMED CARE AT APPROX 1915. VSS ON RA. PATIENT A/O X4 ABLE TO VOICE HER NEEDS. REASSESSMENT PER CHART. LAST BM WAS TODAY. EVENING MEDS GIVEN. REPORTS HAS PAIN ON SACRUM BUT RELIEF WITH POSITION. ZGUARD PASTE APPLIED ON BUTTOCK ORDERED. SHE SAID IT FEELS BETTER. PT SAID SHE IS ABLE TO MOVE HERSELF IN BED. REPORTS LEFT LEG STIFFNESS WHEN SITTING TOO LONG BUT BEARABLE. C/O RIGHT HIP PAIN ALL THE TIME ABOUT 5/10, BUT WOULD LIKE TO TAKE PAIN MED WHEN IT GOES TO 8/10. PT REQUESTED PRN HYDROCODONE AND PRN TRAZODONE AT 11PM. MEDS GIVEN ORDERED AND PER REQUEST. UP X1 ASSIST GB AND WALKER, AMBULATING TO TOILET. FALL PRECAUTIONS IN PLACE. CALLS APPROPRIATELY FOR ASSISTANCE. ROUNDED ON HOURLY. SLEEPING SOUNDLY IN BED AT THIS MOMENT.WILL CONTINUE TO MONITOR.
[2018-12-06 07:20] VITALS: BP 122/67
--- NOTE | 2018-12-06 08:15 | NUR ---
cm visited with pt again at bedside rt hh. list provided again. pt cont to be little resistance about hh. cm provided education that hh is not life time, it is short term, ie maybe only few week and if need then transition to outpt therapy, and education on letting self rest while getting hh and not having to go in and out home for outpt therapy. " i will look, can have cater hh come and talk with me"/cliff.
--- NOTE | 2018-12-06 10:50 | NUR ---
DISCHARGE PLANNING. PER UNIT CM DISCHARGE PLANNED FOR TOMORROW. HOME HEALTH RECOMMENDED AT DISCHARGE. REFERRAL FAXED TO [facility], PER PATIENT REQUEST. PATIENT WOULD LIKE TO MEET A [facility]BER PRIOR TO DISCHARGE. JEFFERSON AWARE. FOLLOWING TO ASSIST WITH DISCHARGE.
--- NOTE | 2018-12-06 15:20 | H ---
[facility] [place] [address] HISTORY AND PHYSICAL Name: MIKKI LAKHANI Room #: 515-P ADM IN M.R.#: [id number] Admission: 11/28/18 Attend Phys: Poli Stanley MD Discharge: Date of : 55 Report #: [id number] THIS REPORT FOR: //name// CC: Poli Alvarez DATE OF SERVICE: 11/28/2018 HISTORY AND PHYSICAL/POSTADMISSION PHYSICIAN EVALUATION HISTORY OF PRESENT ILLNESS: The patient is a 63-year-old white female who was originally admitted to [facility] on 11/25/2018. 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 She did have some significant functional recovery. She has been at home and was a walker ambulator. She had a standing level fall off the front steps and had increased pain with inability to ambulate. She was evaluated and diagnosed with a left sacral fracture and left superior and inferior pubic rami fracture. She is allowed weightbearing as tolerated. She has a left upper lobe nodule noted to be a new finding. She has a right lower lobe possible pneumonia. She is a current smoker, one-half pack per day and has a history of COPD. Neurology has seen her and noted some left-sided weakness with left homonymous hemianopsia uncertain if that was old versus new. MRI was undertaken, which showed a chronic 1.5 cm lacunar infarct right basal ganglia evidence of prior hemorrhagic transformation of a previous infarcts, no acute intracranial infarct was noted. The patient was noted to have significant functional decline from her premorbid status and has been admitted for acute in-hospital inpatient rehabilitation. PAST MEDICAL HISTORY: Includes the right hemorrhagic CVA last year with the left-sided weakness as noted above. She has also a history of left-sided numbness. Apparently, this was due to untreated hypertension. She did have significant recovery of function prior. She has had a prior right hip fracture with repair, history of chronic obstructive pulmonary disease, history of untreated hyperlipidemia, depression and insomnia. She has had carpal tunnel surgery. MEDICATIONS: Please see the full medication listing. This includes vitamins, herbals, and supplements. SOCIAL HISTORY: She lives with her and son, house, one step in. works and son is supportive and involved. There is a sister that lives close by and is involved. Sister apparently helped with tub transfers and bathing premorbidly. The patient did utilize a walker premorbidly. REVIEW OF SYSTEMS: She has the prior history of chronic back problems and has been followed by Dr. Beavers. No history of chest pain, shortness of breath [address] [address] HISTORY AND PHYSICAL Name: MIKKI LAKHANI Room #: 515-P [facility] IN .R.#: [id number] Admission: 11/28/18 Attend Phys: Poli Stanley MD Discharge: Date of : 55 Report #: [id number] and abdominal discomfort. She has chronic tobacco history. PHYSICAL EXAMINATION: GENERAL: This is a 63-year-old white female seen earlier, no obvious distress. VITAL SIGNS: Temperature 98.3, pulse 78, respirations 20, blood pressure 119/83. NEUROLOGIC: She is alert. Facies appeared symmetric. She does have decreased left visual field to confrontation relatively mild. CHEST: Sounded clear to auscultation. CARDIOVASCULAR: Regular rate and rhythm. ABDOMEN: Bowel sounds positive, nontender. GENITOURINARY AND RECTAL: Deferred. EXTREMITIES: She has a resting tremor of her right upper extremity, some mild left-sided weakness with left upper extremity, probably a grade 4-/5. She has some decreased coordination as noted. Lower extremity, some discomfort with attempted testing a volitional strength. She has probably at least grade 4-/5. DTRs are trace to 1. She does have decreased sensation to simultaneous stimulation, left upper and left lower extremity. She is mod assist, sit to stand and has done some short distance ambulation with assistance. Lower extremity dressing has been min assist. ASSESSMENT: A 63-year-old white female with the following problem list: 1. Left sacral fracture with left superior and inferior pubic rami fracture, allowed weightbearing as tolerated. 2. Left hemiparesis with left hemisensory deficit. 3. Prior hemorrhagic right brain cerebrovascular accident. 4. Question of right lower lobe pneumonia. 5. Question of left upper lobe tumor. 6. Prior right hip fracture with intramedullary nailing. 7. Some evidence of homonymous hemianopsia. 8. Tobacco abuse. 9. History of chronic obstructive pulmonary disease. PLAN: The patient is admitted for acute in-hospital inpatient rehabilitation. From a postadmission physician evaluation perspective, there are no relevant changes since the preadmission screening. Please see the above review of prior and current medical and functional conditions and comorbidities. Please see the patient's previous and current functional status. As far as risk of complications, the patient has multiple medical comorbidities as noted above. Initial plan of care involves the interdisciplinary acute inpatient rehabilitation program with goal of maximizing the patient's functional independence, so that she can hopefully return back to her prior living situation. Initial plan of care involves the interdisciplinary acute inpatient rehabilitation program. Measurable functional goals would be for her to become modified independent with transfers, mobility and ADLs, so that she can return back to the home setting. Prognosis is reasonably good with estimated length of [facility] [address] [place] [address] HISTORY AND PHYSICAL Name: MIKKI LAKHANI Heidi Room #: 515-P ADM IN M.R.#: [id number] Admission: 11/28/18 Attend Phys: Poli Stanley MD Discharge: Date of : 55 Report #: [id number] stay probably 7-10 days, potentially longer pending progress. Potential barriers would include her multiple medical comorbidities and decreased functional status. <ELECTRONICALLY SIGNED> By: Poli Stanley MD 12/06/18 1520 [id number] Poli Stanley MD /nt
[2018-12-06] MEDS ORDERED: HYDROCODON-ACE1 EAC7 PO (18:11)
[2018-12-06 19:20] VITALS: BP 122/68
--- NOTE | 2018-12-07 02:01 | NUR ---
assumed care at approx 1900 evening 12/06. pt alert and oriented x4, pleasant and cooperative. pt up to bathroom with walker with 1 assist. pt took hs meds with water tolerating well. pt stated she was looking forward to being discharged. pt appears to be sleeping soundly with hourly rounding checks. bed alarm on and call light in reach. will continue to monitor.
[2018-12-07 04:43] LABS: HEMATOCRIT 32.1 % (37.0-47.0); MCH 33.4 pg (26.0-34.0); MCHC 34.2 g/dL (28.0-37.0); MCV 97.5 fL (80.0-100.0); RBC 3.29 mil/uL (4.20-5.00); RDW 13.8 % (10.5-14.5); WBC 5.1 thou/uL (4.0-11.0)
[2018-12-07 05:14] LABS: ALBUMIN 3.2 g/dL (3.4-5.0); CALCIUM 8.8 mg/dL (8.5-10.1); CREATININE 0.6 mg/dL (0.6-1.0); POTASSIUM 3.7 mmol/L (3.5-5.1); TOTAL BILIRUBIN 0.3 mg/dL (<0.1-1.0); TOTAL PROTEIN 6.1 g/dL (6.4-8.2)
[2018-12-07 07:30] VITALS: BP 112/67
--- NOTE | 2018-12-07 09:56 | NUR ---
ASSUME PT CARE AT 0700. VSS ON RA. MORNING MEDS GIVEN. RATES PAIN 6/10 ON SACRUM, LEFT LEG STIFFNESS AND RIGHT HIP PAIN. PRN HYDROCODONE GIVEN. OFFERED SUPPORTIVE CARE. PT WILL BE DISCHARGE HOME TODAY. FALL PRECAUTION IN PLACE. CALL LIGHT WITHIN REACH. HOME MEDS RETURNED. WILL CONTINUE TO MONITOR.
[2018-12-07 10:33] VITALS: BP 122/68
[2018-12-07] MEDS ORDERED: OMEGA-31000 M1 PO (11:16)
[2018-12-07] MEDS ORDERED: HOME MEDICATION PO (11:16)
== END 2018-12-07 11:44 | disposition home health service (06) | DRG 535 ==
LOC: ENTRNSPT 12-07 11:26 → EDTRNSPTSTS 12-07 11:28
PROVIDERS: Internal Medicine; ADMIT Physical Medicine & Rehabilitation
DX: S32.592A Other specified fracture of left pubis, initial encounter for closed fracture (principal); L89.223 Pressure ulcer of left hip, stage 3; L89.213 Pressure ulcer of right hip, stage 3; S32.10XA Unspecified fracture of sacrum, initial encounter for closed fracture; I69.354 Hemiplegia and hemiparesis following cerebral infarction affecting left non-dominant side; J44.9 Chronic obstructive pulmonary disease, unspecified; W18.39XA Other fall on same level, initial encounter; H53.462 Homonymous bilateral field defects, left side; F17.210 Nicotine dependence, cigarettes, uncomplicated; G31.84 Mild cognitive impairment of uncertain or unknown etiology; R53.81 Other malaise; E78.5 Hyperlipidemia, unspecified; F32.9 Major depressive disorder, single episode, unspecified; G47.00 Insomnia, unspecified; M06.9 Rheumatoid arthritis, unspecified; Y99.8 Other external cause status; Y93.89 Activity, other specified; Y92.89 Other specified places as the place of occurrence of the external cause; I69.398 Other sequelae of cerebral infarction; Z88.2 Allergy status to sulfonamides
CPT/HCPCS: 10112

== ENCOUNTER 2019-11-13 13:22 | Inpatient (IN) | payer BC ==
[~2019-11-13] VITALS: Ht 147.3 cm; Wt 56.7 kg
[~2019-11-13 13:22] MED LIST changes: +ENOXAPARIN30 MG/0.1 SUBQ; +HOME MEDICATION PO; +HYDROCODON-ACE1 EAC7 PO; +KEPPRA750 MG PO; +OMEGA-31000 M1 PO
[2019-11-13 13:23] VITALS: BP 140/71
[2019-11-13 14:51] LABS: ABSOLUTE NEUTROPHILS 3.2 thou/uL (1.4-8.2); HEMOGLOBIN 13.1 gm/dL (12.0-15.0); WBC 5.4 thou/uL (4.0-11.0)
[2019-11-13 14:53] LABS: BASOPHILS 1.3 % (0.0-2.0); EOSINOPHILS 0.7 % (0.0-3.0); HEMATOCRIT 39.8 % (37.0-47.0); LYMPHOCYTES 32.9 % (24.0-44.0); MCH 32.2 pg (26.0-34.0); MCHC 32.8 g/dL (28.0-37.0); MCV 98.1 fL (80.0-100.0); MONOCYTES 5.9 % (1.0-8.0); PLATELET COUNT 215 thou/uL (150-400); POLYS 59.2 % (36.0-66.0); RBC 4.05 mil/uL (4.20-5.00); RDW 16.7 % (10.5-14.5)
[2019-11-13 14:58] LABS: ANION GAP 14 mmol/L (7-16); BUN 9 mg/dL (7-18); CALCIUM 8.7 mg/dL (8.5-10.1); CHLORIDE 98 mmol/L (98-107); CO2 25 mmol/L (21-32); CREATININE 0.5 mg/dL (0.6-1.0); GLUCOSE 189 mg/dL (74-106); POTASSIUM 3.2 mmol/L (3.5-5.1); SODIUM 137 mmol/L (136-145)
[2019-11-13 15:09] LABS: ALBUMIN 3.9 g/dL (3.4-5.0); SGOT 44 U/L (15-37); SGPT 23 U/L (30-65); TOTAL BILIRUBIN 0.5 mg/dL (0.2-1.0); TROPONIN-I <0.06 ng/mL (<0.06)
[2019-11-13 15:49] LABS: URINE BILIRUBIN NEGATIVE (Negative); URINE BLOOD 1+ (Negative); URINE CLARITY SL CLOUDY; URINE COLOR YELLOW; URINE GLUCOSE-RANDOM* NEGATIVE (Negative); URINE KETONES TRACE (Negative); URINE LEUKOCYTES-REFLEX NEGATIVE (Negative); URINE PROTEIN (DIPSTICK) NEGATIVE (Negative); URINE SPECIFIC GRAVITY 1.025 (1.005-1.035); URINE UROBILINOGEN 0.2 E.U./dl (0.2-1.0)
[2019-11-13 15:50] LABS: URINE NITRITE-REFLEX POSITIVE (Negative)
[2019-11-13 16:00] LABS: BACTERIA-REFLEX >30 Many /HPF (None Seen); CASTS None Seen /LPF (None Seen); CRYSTALS None Seen /LPF (None Seen); SQUAMOUS >10 Many /LPF (0-3); URINE RBC None Seen /HPF (0-2); URINE WBC-REFLEX 0-5 Rare /HPF (0-5)
[2019-11-13 16:55] LABS: TSH 1.249 uIU/mL (0.358-3.740)
[2019-11-13 18:50] VITALS: BP 131/77
[2019-11-13 19:03] VITALS: BP 131/77
[2019-11-13 19:58] VITALS: BP 144/76
[2019-11-13] MEDS ORDERED: PREGABALIN25 MG PO (23:07)
[2019-11-13] MEDS ORDERED: DULOXETINE HCL30 MG PO (23:08)
[2019-11-13] MEDS ORDERED: REMERON 30 MG T30 M1 PO (23:10)
[2019-11-13] MEDS ORDERED: ATORVASTATIN CA20 MG PO (23:11)
--- NOTE | 2019-11-13 23:59 | NUR ---
ASSUMED CARE OF PT FROM ED AR 1910HRS. PT AOX4 AND LETS NEEDS BE KNOWN. FALL PRECAUTIO IN PLACE. PT WAS ORIENTED TO THE UNIT AND HER ROOM. PT WAS ABLE TO SIGN OWN CONSENTS. PT HAS A RIGHT 5TH DIGIT FX AND BRUISING ON L FOOT S/P FALL AT HOME. PT REPORTS PAIN AND PRNS WERE PROVIDED. PT WAS ABLE TO ANSWER ALL ADMISSION RELATED QUESTIONS. VSS AND S/S PF ACUTE DISTRESS. WILL CONTINUE TO MONITOR.
[2019-11-14 00:13] VITALS: BP 139/91
[2019-11-14 06:39] LABS: CALCIUM 7.8 mg/dL (8.5-10.1); CREATININE 0.4 mg/dL (0.6-1.0); MAGNESIUM 1.7 mg/dL (1.8-2.4); POTASSIUM 3.2 mmol/L (3.5-5.1)
[2019-11-14 07:33] VITALS: BP 138/87
--- NOTE | 2019-11-14 07:56 | EKG ---
[facility] [place] [address] ELECTROCARDIOGRAM REPORT Name: MIKKI LAKHANI Room #: 455- ADM IN M.R.#: [id number] Admission: 11/13/19 Attend Phys: Soo Gomez Discharge: Date of : 55 Report #: [id number] THIS REPORT FOR: cc: Angel Alvarez MD, Stanley P. MD Lundgren, Craig H. MD [facility] ~ THIS REPORT FOR: //name// [facility] ED Test Date: 2019-11-13 Test Time: 14:39:35 Pat Name: MIKKI LAKHANI Department: Room: [facility] Gender: F Field Sampling Technician: kasey : 1955 Requested By: Bhavani Escalante Order Number: [id number] MD: Go Puga Measurements Intervals Elwin Rate: 96 P: 0 MD: 138 QRS: -58 QRSD: 79 T: 12 QT: 373 QTc: 472 Interpretive Statements Sinus rhythm Left axis deviation Abnormal R-wave progression, early transition Borderline T abnormalities, anterior leads Compared to ECG 11/25/2018 14:52:46 T-wave abnormality now present Sinus tachycardia no longer present Electronically Signed On 11-14-2019 7:55:50 CDT by Go Puga [email or web address] <ELECTRONICALLY SIGNED> By: Go Puga MD, FACC 11/14/19 0755 1439 1439 Go Puga MD, FAC /EPI
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
[2019-11-14 15:32] VITALS: BP 159/98
--- NOTE | 2019-11-14 16:01 | NUR ---
PT UP WITH MOD ASSIST WITH PT. EXPRESSES INCREASED PAIN WHEN PLACING WEIGHT ON LEFT FOOT, ATTEMPTING TO USE RIGHT HAND & WITH CHRONIC PAIN TO RIGHT HIP. PT REQUESTING BEDPAN FOR VOIDING THIS SHIFT. CALLS APPROPRIATELY. PT REPORTS PAIN MANAGED WITH MEDICATION ORDERED. PT STATES THAT SHE USES WHEELCHAIR & WALKER AT HOME. PT PERSONAL WHEELCHAIR IN ROOM. PT EXPRESSES DESIRE TO GET STRONGER & OPEN TO POTENTIAL REHAB. FALL PRECAUTIONS IN PLACE.
[2019-11-14 19:50] VITALS: BP 118/75
--- NOTE | 2019-11-15 04:22 | NUR ---
ASSUMED CARE OF PT AT 1900HRS. PT AOX4 AND LETS NEEDS BE KNOWN. FALL PRECAUTION IN PLACE. ASSESSMENT CHARTED. PT DENIED NAUSEA OR SOA. PT REPORTED PAIN AND WAS TREATED WITH PRNS. PT WAS ABLE TO GET COMFORTABLE AND SLEEP PART OF THE SHIFT. VSS AND NO S/S OF ACUTE DISTRESS. WILL CONTINUE TO MONITOR.
[2019-11-15 08:20] VITALS: BP 115/62
[2019-11-15 12:00] VITALS: BP 115/62
--- NOTE | 2019-11-15 15:00 | NUR ---
PT AND OT SAW PT AND SAID SHE NEEDED POST ACUTE CARE STAY. [facility] COULD ACCEPT AND WENT TO SUBMIT FOR AUTH. THEY WERE TOLD THAT PT IS OON. CM NOTIFIED PT AND SHE INDICATED SHE WAS AGREEABLE WITH REFERRAL [facility]ING [facility]. REFERRAL SENT.
--- NOTE | 2019-11-15 15:27 | NUR ---
FAXED REFERRAL TO [facility] SPOKE WITH [facility] IN ADM SHE RECEIVED REFERRAL AND WILL ACCEPT SHE WILL SUBMIT FOR AUTH AND CALL PT'S . DP TO FOLLOW.
[2019-11-15 15:37] VITALS: BP 122/79
[2019-11-15 20:03] VITALS: BP 131/84
--- NOTE | 2019-11-15 20:09 | NUR ---
ASSUMED PT CARE AT 0700. PT ALERT X ORIENTED X 4. ON ROOM AIR, 1 X PERSON ASST.IV LEFT HAND. HAD A BM TODAY. WORKED WELL WITH OT TODAY. ON REGULAR DIET. PT USES WHEEL CHAIR AND WALKER AT HOME. PT HAS PERSONAL WC AT ROOM. WILL CALL FOR HELP. FALL PRECT IN PLACE. CALL LIGHT IN REACH. SHIFT REPORT GIVEN TO NIGHT NURSE.
--- NOTE | 2019-11-16 04:46 | NUR ---
VSS-AFEBRILE. RESTED WELL THROUGH NIGHT WITH FEW NEEDS. C/O GENERALIZED PAIN THAT WAS WELL CONTROLLED WITH PO PAIN MEDICATIONS. CALLS APPROPRIATELY FOR ANY NEEDED ASSISTANCE.
[2019-11-16 08:30] VITALS: BP 120/81
--- NOTE | 2019-11-16 10:46 | HC ---
[facility] [address] [place] [address] CONSULTATION Name: MIKKI LAKHANI Room #: 455- ADM IN M.R.#: [id number] Admission: 11/13/19 Attend Phys: Soo Gomez Discharge: Date of : 55 Report #: [id number] THIS REPORT FOR: cc: Angel Alvarez MD, Stanley P. MD Khosla, Parveen K. MD ~ CC: Soo Alvarez DATE OF SERVICE: 11/13/2019 HISTORY OF PRESENT ILLNESS: This is a 64-year-old female patient who was evaluated by me for tremor. She is under a lot of stress. She has numerous other problems. The neurological consultation is being requested for tremor and I will confine myself to that. As I understand, the patient has a right hemispheric hemorrhage. I do not know what the cause was. She was in [facility]. Since then, she has developed tremor. Tremor is mostly on the left hand, but is present on both sides. She has also developed falls, but I do not know the reason she falls down. It might be because of neglect of the weakness on the left side, but I am not certain. She says that tremor becomes worse with the stress and she is under a lot of stress for the reason, which has been summarized in H and P as well as Emergency Room physician's note. REVIEW OF SYSTEMS: Indicate she does take hydrocodone. She bruises easily. She is under a lot of stress. She had a fall on Monday. She is on trazodone. That was a relevant 14-point review of system. PAST MEDICAL HISTORY: Positive for carpal tunnel syndrome and hemorrhage. FAMILY HISTORY: Noncontributory. SOCIAL HISTORY: She has a sister who provided part of the history. The patient does smokes. She does drink alcohol. PHYSICAL EXAMINATION: Indicates she is alert. She is responsive. She has difficult time understanding the things, but she was able to respond. Cranial nerve examination does appear to be showing hemianopsia on the left side. She said that is old. She has weakness on the left side. She does appear to be hyperreflexic on the left side. Her position sense appeared to be absent on the left side or at least markedly diminished. Cardiac and respiratory examinations appear unremarkable. IMPRESSION AND RECOMMENDATION: She does appear to have tremor on the left side. She does have some on the right side. That tremor does look parkinsonian. We will see if the hemorrhage was in the basal ganglia. She has a pretty profound [address] [address] CONSULTATION Name: MIKKI LAKHANI Room #: 455-P [facility] IN M.R.#: [id number] Admission: 11/13/19 Attend Phys: Soo Gomez Discharge: Date of : 55 Report #: [id number] weakness in the left side with absent position sense and that will contribute to her fall. Proper living arrangement need to be made for her. I would not treat her, but I will get an imaging study of the brain starting the CT. I will try to get the records from research, but later on, we might give her a trial with Sinemet, but falls are not because of that fall is because of weakness on the left side and you may consider a rehab consult for fall prevention techniques teaching to the patient and the family. <ELECTRONICALLY SIGNED> By: Alec Chan MD 11/16/19 1046 [id number] Alec Chan MD /nt
[2019-11-16 17:29] VITALS: BP 138/79
[2019-11-16 19:30] VITALS: BP 154/92; BP 154/97
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
--- NOTE | 2019-11-17 05:27 | NUR ---
ASSUMED CARE OF PATIENT AT 1900. VSS, REQUESTED PAIN MEDICINE ONCE WHICH WAS EFFECTIVE. SLEPT WELL THROUGH THE NIGHT. NO S/S OF DISTRESS. ANTICIPATING DC TO REHAB WHEN FACILITY IS APPROVED AND PATIENT IS ACCEPTED. PROGRESSING WELL TOWARDS POC GOALS.
[2019-11-17 07:46] VITALS: BP 132/72
[2019-11-17 15:44] VITALS: BP 118/73
--- NOTE | 2019-11-17 17:37 | NUR ---
ASSUMED PATIENT CARE AT 0700. A/O X4. LEFT SIDE WEAKNESS. ASSISTED TO BSC. VSS. SLOWLY TOWARDS POC GOALS.
[2019-11-17 20:08] VITALS: BP 107/61
--- NOTE | 2019-11-18 04:49 | NUR ---
ASSUMED PT CARE AROUND 1900. AXOX4. CALLS APPROPRIATELY FOR ASSISTANCE. NO S/S ACUTE DISTRESS NOTED OR REPORTED AT THIS TIME. WILL CONT TO MONITOR FOR ANY CHANGES IN CONDITION.
[2019-11-18 07:54] VITALS: BP 119/68
[2019-11-18 08:00] LABS: ABSOLUTE NEUTROPHILS 1.8 thou/uL (1.4-8.2); EOSINOPHILS 2.7 % (0.0-3.0); HEMATOCRIT 34.3 % (37.0-47.0); HEMOGLOBIN 11.3 gm/dL (12.0-15.0); LYMPHOCYTES 38.9 % (24.0-44.0); MCH 33.1 pg (26.0-34.0); MCHC 32.9 g/dL (28.0-37.0); MCV 100.8 fL (80.0-100.0); MONOCYTES 10.8 % (1.0-8.0); PLATELET COUNT 169 thou/uL (150-400); POLYS 46.6 % (36.0-66.0); RBC 3.41 mil/uL (4.20-5.00); RDW 17.4 % (10.5-14.5); WBC 3.9 thou/uL (4.0-11.0)
[2019-11-18 08:15] LABS: CALCIUM 8.6 mg/dL (8.5-10.1); CREATININE 0.6 mg/dL (0.6-1.0); MAGNESIUM 1.5 mg/dL (1.8-2.4); POTASSIUM 3.6 mmol/L (3.5-5.1); TOTAL BILIRUBIN 0.2 mg/dL (0.2-1.0); TOTAL PROTEIN 5.7 g/dL (6.4-8.2)
[2019-11-18] MEDS ORDERED: CARBIDOPA-LEVO1 EAC9 PO (16:14)
--- NOTE | 2019-11-18 16:14 | NUR ---
AUTH WAS RECIEVED FOR PT TO DC TO [facility] THIS DAY. [facility] TRANSPORT ARRANGED FOR 1630. CHART COPY ORDRED. ORDERS TO BE FAXED ONCE COMPLETED. REPORT TO BE CALLED TO . PT AND SISTER AWARE AND AGREEABLE. NO OTHER CM INTERVENTION INDICATED. CASE CLOSED.
== END 2019-11-18 16:43 | DRG 563 ==
LOC: ER 13:22 → EROBS 16:43 → 4W 16:43
PROVIDERS: Internal Medicine; Physician Assistant; ADMIT Hospitalist; ATTEND Hospitalist
PROC: 2W3JX1Z Immobilization of Right Finger using Splint (ICD-10-PCS; principal; 2019-11-13)
DX: S62.606A Fracture of unspecified phalanx of right little finger, initial encounter for closed fracture (principal); N39.0 Urinary tract infection, site not specified; I69.254 Hemiplegia and hemiparesis following other nontraumatic intracranial hemorrhage affecting left non-dominant side; G20 Parkinson's disease; E87.6 Hypokalemia; E83.42 Hypomagnesemia; E78.5 Hyperlipidemia, unspecified; F41.9 Anxiety disorder, unspecified; F32.9 Major depressive disorder, single episode, unspecified; F17.210 Nicotine dependence, cigarettes, uncomplicated; W19.XXXA Unspecified fall, initial encounter; Z71.6 Tobacco abuse counseling; Z88.2 Allergy status to sulfonamides; Z88.1 Allergy status to other antibiotic agents; Z88.8 Allergy status to other drugs, medicaments and biological substances; Y93.89 Activity, other specified; Y92.89 Other specified places as the place of occurrence of the external cause; Y99.8 Other external cause status
CPT/HCPCS: 10040; 10045